=== PATIENT | female | born 2000 | race Caucasian/White ===

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

== ENCOUNTER 2024-01-05 15:17 | Emergency (ER) | payer OTHER, BC ==
[2024-01-05 15:38] VITALS: BP 114/82; PULSE 105; RESP 18; TEMP 98; BMI 21.4
== END 2024-01-05 17:01 | disposition home or self-care (01) ==
LOC: JERFT 15:17
DX: Z04.1 Encounter for examination and observation following transport accident (principal); V43.52XA Car driver injured in collision with other type car in traffic accident, initial encounter
CPT/HCPCS: 99283-25